=== PATIENT | female | born 1970 | race Caucasian/White ===

== ENCOUNTER → 2017-05-12 | Outpatient (CLI) | payer MEDICAID ==
[~2017-05-12] MED LIST: CEPHALEXIN500 M1 PO; CETIRIZINE; CLARITIN 1010 MG/TAB PO; CYMBALTA 30MG30 MG PO; ENABLEX 7.5MG7.5 MG; FISH OIL 1000MG1 CAP PO; LYRICA 75MG CAP75 MG PO; NEURONTIN400 MG/CAP PO; NEXIUM 20MG20 MG PO; NORCO 325 MG-51 TAB PO; NUCYNTA50 MG PO; PERCOCET 325 MG1 TA2 PO; ZOFRAN 4MG T4 MG/TAB PO; [UNRECOGNIZED DRUG - OTHER]
== END ==
LOC: MC.RAD 11:20
DX: Z12.31 Encounter for screening mammogram for malignant neoplasm of breast (principal)

== ENCOUNTER 2017-06-04 22:40 | Emergency (ER) | payer MEDICAID ==
[~2017-06-04] VITALS: Ht 160 cm; Wt 90.9 kg
[~2017-06-04 22:40] MED LIST changes: -CLARITIN 1010 MG/TAB PO; -FISH OIL 1000MG1 CAP PO; -LYRICA 75MG CAP75 MG PO; -NEXIUM 20MG20 MG PO
[2017-06-04 22:51] VITALS: BP 150/79; TEMP 97.6
[2017-06-04] MEDS ORDERED: LYRICA 75MG CAP75 MG PO (22:54)
[2017-06-04] MEDS ORDERED: CLARITIN 1010 MG/TAB PO (22:55)
[2017-06-04] MEDS ORDERED: NEXIUM 20MG20 MG PO (22:55)
[2017-06-04] MEDS ORDERED: FISH OIL 1000MG1 CAP PO (22:56)
[2017-06-05 00:47] VITALS: PULSE 66
== END 2017-06-05 00:48 | disposition home or self-care (01) ==
LOC: COL.ER 22:40
DX: G89.29 Other chronic pain (principal); M25.512 Pain in left shoulder; F41.9 Anxiety disorder, unspecified; F32.9 Major depressive disorder, single episode, unspecified; F17.210 Nicotine dependence, cigarettes, uncomplicated
CPT/HCPCS: J1170; J1885; J2360

== ENCOUNTER → 2017-12-09 | Outpatient (CLI) | payer MEDICAID ==
[~2017-12-09] MED LIST changes: +CLARITIN 1010 MG/TAB PO; +FISH OIL 1000MG1 CAP PO; +LYRICA 75MG CAP75 MG PO; +NEXIUM 20MG20 MG PO
== END ==
LOC: COL.RAD 08:15
DX: M25.512 Pain in left shoulder (principal); M54.2 Cervicalgia; R20.0 Anesthesia of skin; R20.2 Paresthesia of skin; R29.898 Other symptoms and signs involving the musculoskeletal system

== ENCOUNTER → 2019-07-14 | Outpatient (CLI) | payer OTHER | LOC: COL.PUL 07:56 → COL.RAD 07:56 → COL.PUL 08:00 | DX: Z02.71 Encounter for disability determination (principal) ==

== ENCOUNTER → 2019-12-10 | Outpatient (CLI) | payer OTHER | LOC: MC.RAD 08:30 | DX: Z12.31 Encounter for screening mammogram for malignant neoplasm of breast (principal) ==

== ENCOUNTER 2020-08-25 11:00 | Outpatient (RCR) | payer MEDICAID | END 2020-08-27 | disposition home or self-care (01) | LOC: WSC | DX: M54.41 Lumbago with sciatica, right side (principal); M54.42 Lumbago with sciatica, left side; G89.29 Other chronic pain ==

== ENCOUNTER 2020-09-15 11:00 | Outpatient (RCR) | payer MEDICAID | END 2020-10-09 | disposition home or self-care (01) | LOC: WSC | DX: M54.30 Sciatica, unspecified side (principal) ==

== ENCOUNTER → 2020-12-12 | Outpatient (CLI) | payer MEDICAID | LOC: COL.RAD | DX: R13.10 Dysphagia, unspecified (principal) ==

== ENCOUNTER → 2021-02-13 | Outpatient (CLI) | payer MEDICAID | LOC: COL.RAD 13:10 | DX: M51.34 Other intervertebral disc degeneration, thoracic region (principal) ==

== ENCOUNTER → 2021-10-23 | Outpatient (CLI) | payer MEDICAID | LOC: COL.RAD 12:00 | DX: R31.21 Asymptomatic microscopic hematuria (principal) ==

== ENCOUNTER 2021-11-30 10:45 | Outpatient (RCR) | payer MEDICAID | END 2021-12-03 | disposition home or self-care (01) | LOC: PT.GENESIS | DX: M76.32 Iliotibial band syndrome, left leg (principal); M25.512 Pain in left shoulder; M70.61 Trochanteric bursitis, right hip; M70.62 Trochanteric bursitis, left hip; M54.41 Lumbago with sciatica, right side; M54.42 Lumbago with sciatica, left side; J41.1 Mucopurulent chronic bronchitis; R30.0 Dysuria; R31.21 Asymptomatic microscopic hematuria; Z79.899 Other long term (current) drug therapy ==

== ENCOUNTER 2022-01-01 13:45 | Outpatient (RCR) | payer MEDICAID | END 2022-01-03 | disposition home or self-care (01) | LOC: PT.GENESIS | DX: M25.512 Pain in left shoulder (principal); M54.41 Lumbago with sciatica, right side; M54.42 Lumbago with sciatica, left side; G89.29 Other chronic pain; M70.61 Trochanteric bursitis, right hip; M70.62 Trochanteric bursitis, left hip; M76.32 Iliotibial band syndrome, left leg; J41.1 Mucopurulent chronic bronchitis; R31.21 Asymptomatic microscopic hematuria; R30.0 Dysuria; Z79.899 Other long term (current) drug therapy ==

== ENCOUNTER 2022-01-29 13:45 | Outpatient (RCR) | payer MEDICAID | END 2022-02-02 | disposition home or self-care (01) | LOC: PT.GENESIS | DX: M25.512 Pain in left shoulder (principal); M54.30 Sciatica, unspecified side; M76.30 Iliotibial band syndrome, unspecified leg ==

== ENCOUNTER 2022-02-06 13:17 | Outpatient (RCR) | payer MEDICAID | END 2022-03-05 13:16 | disposition home or self-care (01) | LOC: PT.GENESIS 13:17 | DX: M70.61 Trochanteric bursitis, right hip (principal); M25.512 Pain in left shoulder; M70.62 Trochanteric bursitis, left hip; M76.32 Iliotibial band syndrome, left leg; M54.41 Lumbago with sciatica, right side; M54.42 Lumbago with sciatica, left side; G89.29 Other chronic pain ==

== ENCOUNTER 2023-01-30 10:00 | Outpatient (RCR) | payer MEDICAID | END 2023-02-02 | disposition home or self-care (01) | LOC: WSOT | DX: G56.01 Carpal tunnel syndrome, right upper limb (principal); G56.22 Lesion of ulnar nerve, left upper limb ==

== ENCOUNTER 2023-05-28 13:00 | Outpatient (RCR) | payer MEDICAID | END 2023-06-05 | disposition home or self-care (01) | LOC: PT.GENESIS | DX: M25.512 Pain in left shoulder (principal); M54.2 Cervicalgia; M54.41 Lumbago with sciatica, right side; M54.42 Lumbago with sciatica, left side; G89.29 Other chronic pain ==

== ENCOUNTER 2023-07-04 09:45 | Outpatient (RCR) | payer MEDICAID | END 2023-07-05 | disposition home or self-care (01) | LOC: PT.GENESIS | DX: M25.512 Pain in left shoulder (principal); M54.2 Cervicalgia; M54.41 Lumbago with sciatica, right side; M54.42 Lumbago with sciatica, left side; G89.29 Other chronic pain ==

== ENCOUNTER 2023-10-05 14:37 | Emergency (ER) | payer MEDICAID ==
[~2023-10-05] VITALS: Ht 157.5 cm; Wt 104.5 kg
[2023-10-05 14:42] VITALS: TEMP 97.8
[2023-10-05 15:33] LABS: BASO # 0.1 K/mm3 (0.0-0.2); BASO % 0.7 % (0.0-2.0); EOS # 0.2 K/mm3 (0.0-0.7); EOS % 2.2 % (0.0-4.0); GRAN # 5.5 K/mm3 (1.4-6.5); GRAN % 61.1 % (42.2-75.2); HEMOGLOBIN 14.8 g/dl (12.5-16.0); LYMPH # 2.3 K/mm3 (1.2-3.4); MEAN CELL VOLUME 98 fl (80.0-100.0); MEAN CORPUSCULAR HEMOGLOBIN 32 pg (27-31); MEAN CORPUSCULAR HGB CONC 33 g/dl (33.0-37.0); MONO # 0.9 K/mm3 (0.1-0.6); MONO % 9.6 % (1.7-9.3); PLATELET COUNT 249 K/mm3 (130-400); REDCELL DISTRIBUTION WIDTH-CV 14.1 % (11.5-14.5)
[2023-10-05 15:48] LABS: ALBUMIN 3.6 gm/dL (3.5-5.0); BILIRUBIN,TOTAL 0.5 mg/dL (0.2-1.2); CALCIUM 9.5 mg/dL (8.4-10.2); CREATININE, serum 1.02 mg/dL (0.57-1.11); POTASSIUM 4.2 mmol/L (3.5-4.5)
[2023-10-05] MEDS ORDERED: CEFTIN 250250 MG/TAB PO (16:30)
[2023-10-05] MEDS ORDERED: PREDNISONE20 MG PO (16:30)
[2023-10-05 16:35] VITALS: BP 137/88; PULSE 63
== END 2023-10-05 17:18 | disposition home or self-care (01) ==
LOC: COL.ER 14:37
PROVIDERS: Personal Emergency Response Attendant
DX: J20.9 Acute bronchitis, unspecified (principal); R09.1 Pleurisy; M54.50 Low back pain, unspecified; M79.605 Pain in left leg; Z88.1 Allergy status to other antibiotic agents; Z79.891 Long term (current) use of opiate analgesic; Z79.899 Other long term (current) drug therapy
CPT/HCPCS: J1885; J7512

== ENCOUNTER 2023-12-31 13:53 | Emergency (ER) | payer SELFPAY ==
[~2023-12-31] VITALS: Ht 157.5 cm; Wt 104.5 kg
[~2023-12-31 13:53] MED LIST changes: +CEFTIN 250250 MG/TAB PO; +PREDNISONE20 MG PO
[2023-12-31 14:01] VITALS: TEMP 98
[2023-12-31] MEDS ORDERED: CEPHALEXIN500 M1 PO (15:46)
[2023-12-31 15:55] VITALS: BP 118/65; PULSE 75
== END 2023-12-31 15:56 | disposition home or self-care (01) ==
LOC: COL.ER 13:53
DX: S81.811A Laceration without foreign body, right lower leg, initial encounter (principal); F17.210 Nicotine dependence, cigarettes, uncomplicated; Z88.1 Allergy status to other antibiotic agents; W22.8XXA Striking against or struck by other objects, initial encounter